=== PATIENT | male | born 1990 | race Caucasian/White ===

== ENCOUNTER 2017-07-03 15:27 | Emergency (ER) | payer MEDICAID ==
[~2017-07-03] VITALS: Ht 165.1 cm; Wt 77.0 kg
[2017-07-03 15:31] VITALS: Ht 165.1 cm; Wt 77.0 kg
--- NOTE | 2017-07-03 17:02 | ERD ---
ER Documentation Chief Complaint Date/Time DATE: 07/03/17 TIME: 16:58 Chief Complaint Complains of palpitation and sob x 2 days HPI 27 year old male presents with mother with palpitations and shortness of breath for the past two days, patient states he has been very stressed and anxious. He denies chest pain, cough, fevers, drug use, medical problems. ROS All systems reviewed and are negative except as per history of present illness. PMhx/Soc Medical and Surgical Hx: pt denies Medical Hx, pt denies Surgical Hx Hx Alcohol Use: No Hx Substance Use: No Hx Tobacco Use: No Smoking Status: Never smoker Physical Exam Vitals Vital Signs Date Time Temp Pulse Resp B/P Pulse Ox O2 Delivery O2 Flow Rate FiO2 07/03/17 15:31 98.8 83 20 167/97 99 Physical Exam Const: WDWN Head: Atraumatic Eyes: Normal Conjunctiva ENT: Normal External Ears, Nose and Mouth. Neck: Full range of motion..~ No meningismus. Resp: Clear to auscultation bilaterally Cardio: Regular rate and rhythm, no murmurs Abd: Soft, non tender, non distended. Normal bowel sounds Skin: No petechiae or rashes Back: No midline or flank tenderness Ext: No cyanosis, or edema Neur: Awake and alert Psych: Normal Mood and Affect Procedures/MDM 27 year old male presents to the ED with chief complaint of episodes of palpitations and shortness of breath, likely due to anxiety. Patient is well- appearing, no murmurs were heard on exam. Patient heart rate was within normal limits. EKG did not show evidence of STEMI or palpitations. CXR did not show any evidence of infiltrates, pneumothorax, pleural effusion. No evidence of pulmonary embolism. Patient is stable to be discharged home to follow-up with PCP, return precautions given Departure Diagnosis: Primary Impression: Palpitations Condition: Stable Patient Instructions: Your Body's Response to Anxiety, Palpitations Additional Instructions: Visite a markus palmer para un EXAMEN.Regrese a estas instalaciones si no se mejora amie esperbamos o amie le dijimos. Regrese a estas instalaciones si no se mejora amie esperbamos o amie le dijimos. ELIEZER CHURCHILL PA-C Jul 03, 2017 17:02
--- NOTE | 2017-07-03 17:02 | RADRPT ---
PROCEDURE: XR Chest. CLINICAL INDICATION: Shortness of breath. TECHNIQUE: A single portable view of the chest was obtained. COMPARISON: None FINDINGS: The cardiomediastinal silhouette is within normal limits. The lungs and pleural spaces are clear. The soft tissues and osseous structures are unremarkable. IMPRESSION: No acute cardiopulmonary disease. RPTAT: HPNM Physician Jane Date Time Electronically viewed and signed by Jaun Alves Physician on 07/03/2017 17:02 /
[2017-07-03 17:40] VITALS: BP 125/78; PULSE 80; RESP 17
== END 2017-07-03 17:40 | disposition home or self-care (01) ==
LOC: FTE 15:27
DX: R00.2 Palpitations (principal)
CPT/HCPCS: 71010; 93005; Z7502

== ENCOUNTER 2018-06-03 15:54 | Emergency (ER) | END 2018-06-03 17:55 | disposition home or self-care (01) ==